=== PATIENT | female | born 1960 | race African-American/Black ===

== ENCOUNTER 2016-09-16 17:21 | Emergency (ER) | payer OTHER ==
[2016-09-16 17:24] VITALS: TEMP 98; BMI 30.9
[2016-09-16] MEDS ORDERED: METOCLOPRAMIDE HCL INJECTION 10 MG/2 ML VIAL IVPB ONE (18:02)
[2016-09-16] MEDS ORDERED: ACETAMINOPHEN 325 MG TABLET (FP) PO ONE (18:03)
[2016-09-16] MEDS ORDERED: ACETAMINOPHEN 325 MG TABLET (FP) ONE (18:04)
[2016-09-16] MEDS ORDERED: METOCLOPRAMIDE HCL INJECTION 10 MG/2 ML VIAL ONE (18:04)
[2016-09-16 18:26] LABS: BASOPHIL 0.5 % (0-2.0); EOSINOPHIL 0.1 % (0-4.5); MCH 28.6 pg (25.7-33.7); MCHC 33.1 g/dl (32.0-36.0); MEAN CELL VOLUME 86.4 fl (80-96); MEAN PLT VOLUME 7.4 fl (7.5-11.1); NEUTROPHILS 66.1 % (42.8-82.8); PLATELET COUNT 233 K/MM3 (134-434); RDW 14.6 % (11.6-15.6); WHITE BLOOD COUNT 5.6 K/mm3 (4.0-10.0)
--- NOTE | 2016-09-16 18:29 | PDOC ---
History of Present Illness - General History Source: Patient Exam Limitations: No Limitations - History of Present Illness Initial Comments: 09/16/16 18:47 The patient is a 56 year old female with a significant past medical history of hypertension, hyperthyroidism, and breast cancer, who presents to the ER with headache for 3 hours. Patient states she had an abdominal CT with contrast done earlier today at 9AM. Patient says she had an abdominal CT for blood in urine. She states she developed a sudden onset of headache a few hours later, originating in the occipital region. She says the headache sometimes moves to the frontal area. On interview, patient states the headache is not as bad as it was earlier today. Patient admits she had accompanied lightheadedness today, now resolved. Denies nausea, vomiting Denies syncope Denies fever, chills <Shalini Crandall - Last Filed: 09/16/16 18:47> <Marlene Del Toro - Last Filed: 09/16/16 19:41> <Amrita Starr - Last Filed: 09/17/16 15:42> - General Chief Complaint: Headache Stated Complaint: HEAD PAIN Time Seen by Provider: 09/16/16 17:42 Past History <Shalini Crandall - Last Filed: 09/16/16 18:47> <Marlene Del Toro - Last Filed: 09/16/16 19:41> - Past Medical History Anemia: Yes (RESOLVED) Asthma: No Cancer: Yes (BREAST L) Cardiac Disorders: No CVA: No COPD: No CHF: No Dementia: No Diabetes: No GI Disorders: No Disorders: No HTN: Yes Hypercholesterolemia: No Liver Disease: No Suicide Attempt (Hx): No Seizures: No Thyroid Disease: Yes - Surgical History Orthopedic Surgery: Yes (FOOT SX - FOREIGN BODY REMOVED LEFT) - Immunization History Immunization Up to Date: Yes - Psycho/Social/Smoking Cessation Hx Anxiety: No Suicidal Ideation: No Smoking History: Never smoked Have you smoked in the past 12 months: No Hx Alcohol Use: No Drug/Substance Use Hx: No Substance Use Type: None <Amrita Starr - Last Filed: 09/17/16 15:42> - Past Medical History Allergies/Adverse Reactions: Allergies Allergy/AdvReac Type Severity Reaction Status Date / Time No Known Drug Allergies Allergy Verified 09/16/16 17:24 Home Medications: Ambulatory Orders Furosemide [Lasix -] 40 mg PO DAILY 11/27/14 Levothyroxine [Synthroid -] 25 mcg PO DAILY 11/27/14 Losartan Potassium 50 mg PO DAILY 11/30/14 Review of Systems - Review of Systems Able to Perform ROS?: Yes Comments:: 09/16/16 18:48 GENERAL/CONSTITUTIONAL: No fever or chills. No weakness. HEAD, EYES, EARS, NOSE AND THROAT: No change in vision. No ear pain or discharge. No sore throat. CARDIOVASCULAR: No chest pain or shortness of breath. RESPIRATORY: No cough, wheezing, or hemoptysis. GASTROINTESTINAL: No nausea, vomiting, diarrhea or constipation. GENITOURINARY: No dysuria, frequency, or change in urination. MUSCULOSKELETAL: No joint or muscle swelling or pain. No neck or back pain. SKIN: No rash NEUROLOGIC: (+) headache, (+) lightheadness. No vertigo, loss of consciousness, or change in strength/sensation. ENDOCRINE: No increased thirst. No abnormal weight change. HEMATOLOGIC/LYMPHATIC: No anemia, easy bleeding, or history of blood clots. ALLERGIC/IMMUNOLOGIC: No hives or skin allergy. <Uts,Shalini - Last Filed: 09/16/16 18:47> *Physical Exam - Vital Signs Last Vital Signs Temp Pulse Resp BP Pulse Ox 98.0 F 75 16 153/89 98 09/16/16 17:21 09/16/16 18:22 09/16/16 18:22 09/16/16 18:22 09/16/16 18:22 - Physical Exam Comments: 09/16/16 18:52 GENERAL: Awake, alert, and fully oriented, in no acute distress HEAD: No signs of trauma EYES: PERRLA, EOMI, sclera anicteric, conjunctiva clear ENT: Auricles normal inspection, hearing grossly normal, nares patent, oropharynx clear without exudates. Moist mucosa NECK: Normal ROM, supple, no lymphadenopathy, JVD, or masses LUNGS: Breath sounds equal, clear to auscultation bilaterally. No wheezes, and no crackles HEART: Regular rate and rhythm, normal S1 and S2, no murmurs, rubs or gallops ABDOMEN: Soft, nontender, normoactive bowel sounds. No guarding, no rebound. No masses EXTREMITIES: Normal range of motion, no edema. No clubbing or cyanosis. No cords, erythema, or tenderness NEUROLOGICAL: Cranial nerves II through XII grossly intact. Normal speech, normal gait SKIN: Warm, Dry, normal turgor, no rashes or lesions noted. <Uts,Shalini - Last Filed: 09/16/16 18:47> - Vital Signs Last Vital Signs Temp Pulse Resp BP Pulse Ox 98.0 F 75 16 153/89 98 09/16/16 17:21 09/16/16 18:22 09/16/16 18:22 09/16/16 18:22 09/16/16 18:22 <Marlene Del Toro - Last Filed: 09/16/16 19:41> - Vital Signs Last Vital Signs Temp Pulse Resp BP Pulse Ox 98.0 F 75 16 153/89 98 09/16/16 17:21 09/16/16 18:22 09/16/16 18:22 09/16/16 18:22 09/16/16 18:22 <Amrita Starr - Last Filed: 09/17/16 15:42> ED Treatment Course - LABORATORY CBC & Chemistry Diagram: 09/16/16 18:15 09/16/16 18:02 - ADDITIONAL ORDERS Additional order review: 09/16/16 18:15 RBC 4.42 MCV 86.4 MCHC 33.1 RDW 14.6 D MPV 7.4 L D Neutrophils % 66.1 Lymphocytes % 25.9 D Monocytes % 7.4 Eosinophils % 0.1 Basophils % 0.5 - Medications Given in the ED: ED Medications Discontinued Medications Generic Name Dose Route Start Last Admin Trade Name Zeina PRN Reason Stop Dose Admin Acetaminophen 650 mg 09/16/16 18:03 09/16/16 18:19 Tylenol - PO 09/16/16 18:04 650 mg NOW ONE Administration Metoclopramide HCl 10 mg 09/16/16 18:02 09/16/16 18:19 Reglan Injection - IVPB 09/16/16 18:03 10 mg NOW ONE Administration <Uts,Shalini - Last Filed: 09/16/16 18:47> - LABORATORY CBC & Chemistry Diagram: 09/16/16 18:15 09/16/16 18:02 - ADDITIONAL ORDERS Additional order review: Laboratory Results 09/16/16 18:02 Sodium 135 L Potassium 3.3 L Chloride 97 L Carbon Dioxide 29 Anion Gap 9 BUN 11 D Creatinine 0.6 Creat Clearance w eGFR > 60 Random Glucose 97 D Calcium 8.6 Total Bilirubin 0.3 AST 16 ALT 16 Alkaline Phosphatase 68 Total Protein 7.0 Albumin 3.3 L 09/16/16 18:15 RBC 4.42 MCV 86.4 MCHC 33.1 RDW 14.6 D MPV 7.4 L D Neutrophils % 66.1 Lymphocytes % 25.9 D Monocytes % 7.4 Eosinophils % 0.1 Basophils % 0.5 - Medications Given in the ED: ED Medications Discontinued Medications Generic Name Dose Route Start Last Admin Trade Name Freq PRN Reason Stop Dose Admin Acetaminophen 650 mg 09/16/16 18:03 09/16/16 18:19 Tylenol - PO 09/16/16 18:04 650 mg NOW ONE Administration Metoclopramide HCl 10 mg 09/16/16 18:02 09/16/16 18:19 Reglan Injection - IVPB 09/16/16 18:03 10 mg NOW ONE Administration Potassium Chloride 40 meq 09/16/16 19:14 09/16/16 19:21 K-Dur - PO 09/16/16 19:15 40 meq ONCE ONE Administration <Marlene Del Toro - Last Filed: 09/16/16 19:41> - LABORATORY CBC & Chemistry Diagram: 09/16/16 18:15 09/16/16 18:02 - ADDITIONAL ORDERS Additional order review: 09/16/16 18:15 RBC 4.42 MCV 86.4 MCHC 33.1 RDW 14.6 D MPV 7.4 L D Neutrophils % 66.1 Lymphocytes % 25.9 D Monocytes % 7.4 Eosinophils % 0.1 Basophils % 0.5 - Medications Given in the ED: ED Medications Discontinued Medications Generic Name Dose Route Start Last Admin Trade Name Freq PRN Reason Stop Dose Admin Acetaminophen 650 mg 09/16/16 18:03 09/16/16 18:19 Tylenol - PO 09/16/16 18:04 650 mg NOW ONE Administration Metoclopramide HCl 10 mg 09/16/16 18:02 09/16/16 18:19 Reglan Injection - IVPB 09/16/16 18:03 10 mg NOW ONE Administration <Amrita Starr - Last Filed: 09/17/16 15:42> Medical Decision Making - Medical Decision Making 09/16/16 19:34 headache and lightheadedness resolved. CT head WNL: Patient Name: Jenelle Escobar THIS IS A PRELIMINARYREPORT FROM [facility] [employer] DATE OF SERVICE: 2016-09-16 18:51:51.0 IMAGES: 67 EXAM: CT of the brain without contrast HISTORY:Occipital headache COMPARISON: None. FINDINGS:Serial transaxial images of the brain are available without intravenous contrast agent. The brain parenchyma is within normal limits. There is no midline shift or mass-effect or acute hemorrhage. No abnormal fluid collections are seen. The ventricular system is within normal limits. The mastoid air cells are well- aerated. Visible portions of the paranasal sinuses demonstrate focal disease of the ethmoidal sinus posteriorly on the left side. The calvarium appears intact IMPRESSION: Unremarkable noncontrast CT of the brain 09/16/16 19:42 Pts headache is resolved; she is eating dinner and feeling better. Labs are normal; Potassium a little low. She was given a dose of potassium. <Marlene Del Toro - Last Filed: 09/16/16 19:41> - Medical Decision Making 09/16/16 19:[address] Del Toro at shift change. Presented with headache that started approximately [address] a/p. Symptoms may be result of receiving IV contrast, dehydration, or possibly received air bolus in the IV, leading to headache. Awaiting results of CTH. If wnl, will DC home. <Amrita Starr - Last Filed: 09/17/16 15:42> *DC/Admit/Observation/Transfer - Attestations Scribe Attestion: 09/16/16 18:52 Documentation prepared by Shalini Crandall, acting as medical anthropology director for Amrita Starr MD. <Shalini Crandall - Last Filed: 09/16/16 18:47> - Discharge Dispostion Admit: No <Marlene Del Toro - Last Filed: 09/16/16 19:41> <Amrita Starr - Last Filed: 09/17/16 15:42> Diagnosis at time of Disposition: Head ache - Discharge Dispostion Disposition: HOME Condition at time of disposition: Stable - Referrals Referrals: Waldemar Dias MD [Primary Care Provider] - - Patient Instructions Printed Discharge Instructions: Easing a Headache [address]
[2016-09-16] MEDS ORDERED: SODIUM CHLORIDE 1,000 ML IV STA (18:36)
[2016-09-16 18:48] LABS: ALBUMIN 3.3 g/dl (3.4-5.0); ALK PHOS 68 U/L (45-117); ANION GAP 9 (8-16); BILIRUBIN,TOTAL 0.3 mg/dL (0.2-1.0); CALCIUM 8.6 mg/dL (8.5-10.1); CO2 29 mmol/L (21-32); COCKROFT - GAULT 131.7245; CREATININE 0.6 mg/dL (0.55-1.02); GLUCOSE,RANDOM 97 mg/dL (74-106); SGOT/AST 16 U/L (15-37); SGPT/ALT 16 U/L (12-78)
[2016-09-16] MEDS ORDERED: POTASSIUM CHLORIDE TABS 20 MEQ TABLET.ER (FP) PO ONE ×2 (19:14→19:15)
[2016-09-16 19:52] VITALS: BP 134/88; PULSE 78
== END 2016-09-16 19:54 | disposition home or self-care (01) ==
LOC: JER 17:21
PROC: 3E0337Z Introduction of Electrolytic and Water Balance Substance into Peripheral Vein, Percutaneous Approach (ICD-10-PCS; principal; 2016-09-16)
PROC: 3E033GC Introduction of Other Therapeutic Substance into Peripheral Vein, Percutaneous Approach (ICD-10-PCS; 2016-09-16)
DX: R51 Headache (principal); I10 Essential (primary) hypertension; E03.9 Hypothyroidism, unspecified; Z85.3 Personal history of malignant neoplasm of breast
CPT/HCPCS: 36415; 70450-TC; 80053; 85025; 96361; 96374; 99283-25

== ENCOUNTER 2019-02-05 10:58 | Day surgery (SDC) | payer OTHER ==
[2019-02-05 12:01] VITALS: BMI 28.1
[2019-02-05] MEDS ORDERED: PROPOFOL 20 ML ONE ×3 (12:51)
[2019-02-05 13:17] VITALS: TEMP 98.4
[2019-02-05 13:37] VITALS: BP 113/68; PULSE 71
--- NOTE | 2019-02-07 14:17 | PATH ---
Surgical Pathology Report Patient Name: MI PLASCENCIA [facility]. Rec. #: [id number] /Age/Gender: 1960 (Age: 59) / F Account: [id number] Location: [facility] Taken: 02/05/2019 Received: 02/05/2019 Reported: 02/07/2019 Physicians: Marian Madera M.D. Specimen(s) Received A: SECOND PORTION DUODENUM B: ANTRUM C: GE JUNCTION Clinical History Dyspepsia Postoperative diagnosis: Gastritis Final Diagnosis A. DUODENUM, SECOND PORTION, BIOPSY: DUODENAL MUCOSA WITHOUT SIGNIFICANT PATHOLOGIC FINDINGS. B. GASTRIC ANTRUM, BIOPSY: GASTRIC ANTRAL MUCOSA WITH MILD CHRONIC GASTRITIS. IMMUNOHISTOCHEMICAL STAIN FOR H. PYLORI IS NEGATIVE. C. GE JUNCTION, BIOPSY: SQUAMOCOLUMNAR MUCOSA WITH MODERATE CHRONIC INFLAMMATION AND CHANGES OF MILD TO MODERATE REFLUX ESOPHAGITIS. NO INTESTINAL METAPLASIA OR DYSPLASIA IDENTIFIED. Electronically Signed Marian Rivas M.D. Gross Description A. Received in formalin, labeled "biopsy second portion of duodenum" is a lara, irregular portion of soft tissue measuring 0.5 cm. in greatest dimension. The specimen is submitted in toto in one cassette. B. Received in formalin, labeled "biopsy gastric antrum" is a lara, irregular portion of soft tissue measuring 0.3 cm. in greatest dimension. The specimen is submitted in toto in one cassette. C. Received in formalin, labeled "biopsy GE junction" is a lara, irregular portion of soft tissue measuring 0.3 cm. in greatest dimension. The specimen is submitted in toto in one cassette. 02/06/2019 saudi02/06/2019
== END 2019-02-05 13:45 | disposition home or self-care (01) ==
LOC: FASU-ENDO 10:58
PROVIDERS: ATTEND Internal Medicine Gastroenterology
PROC: 0DB68ZX Excision of Stomach, Via Natural or Artificial Opening Endoscopic, Diagnostic (ICD-10-PCS; 2019-02-05)
PROC: 0DB48ZX Excision of Esophagogastric Junction, Via Natural or Artificial Opening Endoscopic, Diagnostic (ICD-10-PCS; 2019-02-05)
PROC: 0DB98ZX Excision of Duodenum, Via Natural or Artificial Opening Endoscopic, Diagnostic (ICD-10-PCS; principal; 2019-02-05 12:52)
DX: K29.50 Unspecified chronic gastritis without bleeding (principal); K21.0 Gastro-esophageal reflux disease with esophagitis; R10.13 Epigastric pain
CPT/HCPCS: 88305-TC; 88342-TC

== ENCOUNTER 2021-06-08 13:59 | Emergency (ER) | payer OTHER ==
[2021-06-08 14:26] VITALS: BP 164/92; PULSE 83; TEMP 98.5; BMI 31.5
== END 2021-06-08 15:27 | disposition home or self-care (01) ==
LOC: JERFT 13:59
DX: M24.571 Contracture, right ankle (principal); S99.911A Unspecified injury of right ankle, initial encounter; W20.8XXA Other cause of strike by thrown, projected or falling object, initial encounter
CPT/HCPCS: 99281-25

== ENCOUNTER 2021-06-30 17:42 | Emergency (ER) | payer OTHER ==
[2021-06-30 17:50] VITALS: BP 168/95; PULSE 89; TEMP 98.4; BMI 30.9
[2021-06-30] MEDS ORDERED: IBUPROFEN 600 MG TABLET (FP) PO ONE ×2 (18:52→18:55)
== END 2021-06-30 23:17 | disposition home or self-care (01) ==
LOC: JERFT 17:42
DX: S06.0X0A Concussion without loss of consciousness, initial encounter (principal); W22.8XXA Striking against or struck by other objects, initial encounter
CPT/HCPCS: 70450-TC; 99284-25